=== PATIENT | female | born 1995 | race Caucasian/White ===

== ENCOUNTER 2022-01-14 16:19 | Emergency (ER) | payer OTHER, SELFPAY ==
--- NOTE | 2022-01-14 16:26 | ECG_ITS ---
Test Reason : cp Blood Pressure : / mmHG Vent. Rate : 095 BPM Atrial Rate : 095 BPM P-R Int : 138 ms QRS Dur : 088 ms QT Int : 358 ms P-R-T Axes : 048 048 025 degrees QTc Int : 449 ms Normal sinus rhythm Normal ECG No previous ECGs available Referred By: Generic ED Physician Electronically Signed By:WALESKA SAWYER
[2022-01-14 16:33] VITALS: BP 124/82; PULSE 97; RESP 18; TEMP 36.8; O2SAT 100; BMI 46.5
== END 2022-01-14 19:18 | disposition left against medical advice (07) ==
PROVIDERS: Emergency Provider Emergency Medicine
DX: R07.9 Chest pain, unspecified (principal)
CPT/HCPCS: 93005; 99283